=== PATIENT | male | born 1955 | race Caucasian/White ===

== ENCOUNTER 2023-10-12 07:32 | Day surgery (SDC) | payer OTHER, MEDICARE ==
[~2023-10-12] VITALS: Ht 185.4 cm; Wt 90.0 kg
[~2023-10-12 07:32] MED LIST: LOSA50TA28 PO; OMEP-173 PO; OMEP10CASR PO; SIMETHICONE 40MG/0.6ML DROPS 30ML As Ordered ONE; propofoL 200 MG/20 ML VIAL As Ordered ONE
[2023-10-12] MEDS: NS 1,000 ML IV ONE (07:55)
[2023-10-12] MEDS ORDERED: GLYCOPYRROLATE INJ 0.2 MG/ML 2 ML VIAL As Ordered ONE (08:47)
[2023-10-12 09:12] VITALS: TEMP 98.5
[2023-10-12 09:26] VITALS: BP 143/93; O2SAT 99
== END 2023-10-12 09:32 | disposition home or self-care (01) ==
LOC: M OPP 07:32
PROVIDERS: ATTEND Internal Medicine Gastroenterology
DX: Z12.11 Encounter for screening for malignant neoplasm of colon (principal); D12.0 Benign neoplasm of cecum; D12.4 Benign neoplasm of descending colon; D12.5 Benign neoplasm of sigmoid colon; K64.8 Other hemorrhoids; K57.30 Diverticulosis of large intestine without perforation or abscess without bleeding; D17.5 Benign lipomatous neoplasm of intra-abdominal organs; F17.200 Nicotine dependence, unspecified, uncomplicated; Z79.899 Other long term (current) drug therapy

== ENCOUNTER → 2023-11-11 | Outpatient (CLI) | payer MEDICARE ==
[~2023-11-11] MED LIST changes: +ISOVUE-370 76% 100ML VIAL As Ordered ONE; -SIMETHICONE 40MG/0.6ML DROPS 30ML As Ordered ONE; -propofoL 200 MG/20 ML VIAL As Ordered ONE
== END ==
LOC: M RAD 10:51
PROVIDERS: ATTEND Surgery Vascular Surgery
DX: I71.43 Infrarenal abdominal aortic aneurysm, without rupture (principal); N28.1 Cyst of kidney, acquired; K57.30 Diverticulosis of large intestine without perforation or abscess without bleeding
CPT/HCPCS: 74174; Q9967